=== PATIENT | female | born 1995 | race Caucasian/White ===

== ENCOUNTER 2017-01-09 10:58 | Emergency (ER) | payer OTHER ==
[2017-01-09 11:44] LABS: BASOPHIL 0.1 % (0-2); EOSINOPHIL 1.1 % (0-5); HCT 40.5 % (37.0-47.0); HGB 14.2 g/dl (12.5-16.0); LYMPHOCYTE 17.3 % (15-48); MCH 30.6 pg (25.0-31.0); MCHC 35.1 g/dL (32.0-36.0); MCV 87.3 fL (78.0-100.0); MONOCYTE 7.8 % (0-12); MPV 11.3 fL (6.0-9.5); NEUTROPHIL 73.7 % (41-80); PLT 196 K/uL (150-400); RBC 4.64 M/uL (4.20-5.40); RDW 11.9 % (11.5-14.0); WBC 7.1 K/uL (4.0-10.5)
[2017-01-09 11:51] LABS: BILIRUBIN NEGATIVE (NEGATIVE); BLOOD 1+ Ery/uL (NEGATIVE); CLARITY CLEAR (CLEAR); COLOR YELLOW (YELLOW); GLUCOSE (U) NORMAL (NORMAL); KETONE (U) NEGATIVE (NEGATIVE); LEUKOCYTES TRACE Leu/uL (NEGATIVE); NITRITE NEGATIVE (NEGATIVE); PROTEIN NEGATIVE (NEGATIVE); SPECIFIC GRAVITY 1.025 (1.001-1.030); UROBILINOGEN 0.2 mg/dL (0.2-1.0); pH 5.5 (5.0-9.0)
[2017-01-09 11:59] LABS: BACTERIA 2+
[2017-01-09 12:03] LABS: CREATININE 0.7 mg/dL (0.5-1.0)
== END 2017-01-09 12:47 | disposition home or self-care (01) ==
LOC: FER 10:58
PROVIDERS: Emergency Medicine
DX: N30.00 Acute cystitis without hematuria (principal); I34.1 Nonrheumatic mitral (valve) prolapse
CPT/HCPCS: 36415; 74000; 80048; 81001; 85025